=== PATIENT | male | born 1990 | race Caucasian/White ===

== ENCOUNTER 2016-07-31 16:56 | Emergency (ER) | payer MEDICAID, OTHER ==
[2016-07-31] MEDS ORDERED: LIDOCAINE HCL/EPINEPHRINE 30 ML VIAL IJ ONE (17:49)
--- OUTSIDE RECORDS SUMMARY | 2016-07-31 17:50 | XMS REPORT | Continuity of Care Document ---
:1990 Author Organization [facility] ([facility]) Address [address] [place] [address] Phone [phone] Care Team Providers Name Role Phone Raphael VickersBrenda Primary Care Provider [phone] Source Comments This disclosure is being made pursuant to the Care Everywhere program, applicable federal and state laws, and may not contain all informaitonavailable regarding this patient.[facility] ([facility]) Active Allergies and Adverse Reactions No Known Allergies Current Medications Prescription Sig. Disp. Refills Start Date End Date Status docusate 100 mg capsule Take 1 Cap by mouth 30 Cap 0 01/03/2014 Active 2 times daily. Indications: CONSTIPATION sennosides 8.6 mg Take 1-2 Tabs by 30 Tab 0 01/03/2014 Active tablet mouth daily. Indications: CONSTIPATION oxyCODONE-acetaminophen Take 1-2 Tabs by 30 Tab 0 01/03/2014 Active 5-325 mg per tablet mouth every 4 hours as needed. Do Not exceed 4000 mg of acetaminophen per 24 hours. Indications: PAIN ACETAMINOPHEN (TYLENOL Take by mouth as Active PO) needed. cyclobenzaprine 10 mg Take 1 Tab by mouth 40 Tab 0 02/11/2014 Active tablet at bedtime as needed. Indications: MUSCLE SPASM citalopram 10 mg tablet Take 1 Tab by mouth 30 Tab 3 02/11/2014 Active at bedtime. Indications: MAJOR DEPRESSIVE DISORDER ibuprofen PO Take 400 mg by mouth Active 4 times daily as needed. baclofen 10 mg tablet Take 1 Tab by mouth 90 Tab 3 05/25/2014 Active 3 times daily as needed. Indications: MUSCLE SPASTICITY OF SPINAL ORIGIN Active Problems Problem Noted Date Subdural hemorrhage 12/31/2013 Rib fractures 12/31/2013 Overview: B/L 1st ribs, L 9-11 Lumbar transverse process fracture 12/31/2013 Overview: Left L1-L3 Trauma 12/31/2013 Spleen laceration extending into parenchyma 12/31/2013 Overview: Required spenic artery angiogram ABDOMINAL PAIN PERIUMBILICAL 04/10/2005 Immunizations Name Dates Previously Given Next Due Pneumococcal Polysaccharide, PPSV23 (Pneumovax 23) 01/03/2014 Social History Tobacco Use Types Packs/Day Years Used Date Current Every Day Smoker Cigarettes Smokeless Tobacco: Current User Chew Alcohol Use Drinks/Week oz/Week Comments No Last Filed Vital Signs Vital Sign Reading Time Taken Blood Pressure 107/69 05/25/2014 10:50 AM CDT Pulse 82 05/25/2014 10:50 AM CDT Temperature 36.7 C (98.1 F) 05/25/2014 10:50 AM CDT Respiratory Rate 20 02/11/2014 3:59 PM [facility] Height 1.753 m (5' 9.02") 05/25/2014 10:50 AM CDT Weight 53.071 kg (117 lb) 05/25/2014 10:50 AM CDT Body Mass Index 17.27 05/25/2014 10:50 AM CDT Oxygen Saturation 95% 02/11/2014 3:59 PM [facility] Plan of Care Health Maintenance Due Date Last Done Comments Hepatitis B Vaccine (1 of 3 - Primary Series) 1992 HPV Vaccine (1 of 3 - Male 3 Dose Series) 10/07/2003 Tdap Vaccine 10/07/2003 Lipid Disorder Screening 2010 MMR Vaccine 2010 Td Vaccine 2010 Varicella Vaccine (1 of 2 - Adult - No Evidence of 2010 Immunity) Influenza Vaccine: Seasonal (#1) 10/02/2015 Pneumococcal Vaccine Completed 01/03/2014 Results from Last 3 Months Not on file
--- NOTE | 2016-07-31 18:25 | ERNOTE ---
Medical Problem HPI - Narrative Date of Service: 07/31/16 - General Chief Complaint: Laceration Time Seen by Provider: 07/31/16 17:40 Source: patient, RN notes reviewed Exam Limitations: no limitations - Immun/Allergies/Home Medications Immunizations: IMMUNIZATION HX Immunizations Up to Date Yes History of Influenza Vaccine No Hx Pneumococcal Vaccination No Allergies/Adverse Reactions: Allergies No Known Allergies Allergy (Verified 07/31/16 17:05) Home Medications: HOME MEDICATIONS Alprazolam [Alprazolam Xr] 1 mg PO TID 01/22/16 [Last Taken Unknown] - History of Present History Narrative: 25 y/o male brought to the ED by private vehicle from his work for a laceration to his chin. He works at [employer]. He was using a pry bar when it came loose and struck his chin. He denies falling down or losing consciousness. His last tetanus vaccination was in 2012. Date (Duration): 07/31/16 Review of Systems - Review of Systems Constitutional: Absent: weakness, fatigue EYE: Absent: eye pain, vision changes ENT: Absent: nasal drainage, other - dental injury Respiratory: Present: no symptoms reported Cardiology: Present: no symptoms reported Gastrointestinal/Abdominal: Absent: nausea, vomiting Genitourinary: Present: no symptoms reported Musculoskeletal: Absent: muscle pain, neck pain Skin: Absent: lesions, lumps, change in color Neurological: Absent: headache, dizziness/light-headedness, numbness, tingling Endocrine: Present: no symptoms reported Hematologic/Lymphatic: Absent: easy bruising, easy bleeding Psych: Present: no symptoms reported - Patient's Past Medical History Patient History - Medical: Anxiety, Depression, Headache Patient History - Cardiac/Respiratory: No pertinent hx Patient History - Cancer: No Hx of Cancer Patient History - Surgical Procedures: No surgical history Patient History - Other: None - Family History mom Family History - Medical: Anxiety Family History - Cardiac/Respiratory: Hypertension, TIA - Social History Living Situations: other Abuse History: No History of abuse Psych History: Hx of Anxiety, Hx of Depression, Current tx/ever been on anti- depressants or anti-anxiety meds Does anyone smoke in the home?: Yes Smoking Status: Current every day smoker Have you smoked in the past 12 months: Yes Alcohol Use: occasionally Drug Use: none - Immunizations Immunizations Up to Date: Yes Hx Pneumococcal Vaccination: No History of Influenza Vaccine: No Physical Exam - Physical Exam General Appearance: Present: wd/wn, alert, no apparent distress Eye Exam: Normal inspection: bilateral, PERRL: bilateral Ears, Nose, Throat: Present: normal ENT inspection, other - no jaw tenderness, impaired movement or deformity, no loose teeth Neck: Present: normal inspection, nontender, supple, full range of motion Respiratory: Present: no respiratory distress, no accessory muscle use Cardiovascular/Chest: Present: normal peripheral pulses Neurological Exam: Present: alert, oriented, normal mood/affect, no motor/ sensory deficits Skin Exam: Present: normal color, warm/dry, other - laceration to mandible just right of midline ED Progress - Vital Signs Patient's Vital Signs:: I have reviewed the patient's vital signs. Vital Signs: Vital Signs 07/31/16 17:02 Temperature 36.8 C Pulse Rate 88 Respiratory 14 Rate Blood Pressure 127/77 O2 Sat by Pulse 100 Oximetry - Progress/Reassessment Chief Complaint: Laceration Progress:: Improved Procedures Chin Anesthesia: Lidocaine w/ Epi Length of Repair/Wound (cm): 1.5 Wound's Depth/Shape: into subcutaneous, irregular Wound Explored: clean, to base, in bloodless field, no foreign body Wound Intervention: irrigated w/saline, multiple flaps aligned Wound Repaired With: sutures Suture Size/Type: 6-0, nylon Number of Sutures: 5 Layer Closure: Simple Wound Dressing: sterile dressing applied Complications: Pt anderson procedure well Plan - Plan Plan: Patient discharged, to lab for employer required drug testing. Patient concerned because he knows he will be positive for benzodiazepines but is taking alprazolam that is prescribed to him. Departure - Departure Clinical Impression: Chin laceration Qualifiers: Encounter type: initial encounter Qualified Code(s): S01.81XA - Laceration without foreign body of other part of head, initial encounter Disposition: Home Follow Up Needed Condition: Good Instructions: Sutured Wound Care, [id number] Additional Instructions: Keep dressing dry and in place for 24 hours Tomorrow night, remove dressing and wash gently with soap and water Apply antibiotic ointment twice a day, cover with bandaid as needed Have sutures removed in 5 days Referrals: Cherie Olivarez, [facility] [Allied Health] -
[2016-07-31 20:07] VITALS: BP 122/74
== END 2016-07-31 18:27 | disposition home or self-care (01) ==
LOC: ER 16:56
PROC: 0JQ10ZZ Repair Face Subcutaneous Tissue and Fascia, Open Approach (ICD-10-PCS; principal; 2016-07-31)
DX: S01.81XA Laceration without foreign body of other part of head, initial encounter (principal); X78.8XXA Intentional self-harm by other sharp object, initial encounter; Y93.9 Activity, unspecified; Y92.63 Factory as the place of occurrence of the external cause; Y99.0 Civilian activity done for income or pay; F41.8 Other specified anxiety disorders; Z72.0 Tobacco use

== ENCOUNTER 2016-09-18 16:06 | Emergency (ER) | payer OTHER ==
[2016-09-18 16:14] VITALS: BP 119/70
[2016-09-18] MEDS ORDERED: TETRACAINE HCL 150 DROP BTL ONE (16:24)
[2016-09-18] MEDS ORDERED: IBUPROFEN 600 MG TABLET PO ONE (16:49)
[2016-09-18] MEDS ORDERED: GENTAMICIN SULFATE 3.5 APPL TUBE EACHEYE ONE (16:49)
[2016-09-18] MEDS ORDERED: IBUPROFEN 600 MG TABLET ONE (16:51)
[2016-09-18] MEDS ORDERED: GENTAMICIN SULFATE 3.5 APPL TUBE ONE (16:51)
--- NOTE | 2016-09-18 17:03 | ERNOTE ---
ENT [facility] Date of Service: 09/18/16 Presenting Symptoms: eye pain Time Seen by Provider: 09/18/16 16:32 Source: patient, RN notes reviewed Exam Limitations: no limitations - Immun/Allergies/Home Medications Immunizations: IMMUNIZATION HX Immunizations Up to Date Yes History of Influenza Vaccine No Hx Pneumococcal Vaccination No Allergies/Adverse Reactions: Allergies Allergy/AdvReac Type Severity Reaction Status Date / Time No Known Allergies Allergy Verified 09/18/16 16:14 Home Medications: HOME MEDICATIONS NK [No Home Medication] 09/18/16 [Last Taken Unknown] - History of Present Illness Narrative: 25 y/o male ambulatory to the ED for flash yañez from welding arc exposure to both eyes. The patient works at [employer]. 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 He reports that he has had symptoms off and on throughout his employment there. He states that his eye pain and inflammation worsens during the work week, but improves over the weekend while he is off. He does not wear contacts or glasses. He has not been taking anything for his symptoms. ENT Location: Present: eye (R), eye (L) Prearrival Treatment: Present: no prearrival treatment Review of Systems - Review of Systems Constitutional: Absent: recent illness, fever, chills EYE: Present: eye pain, blurred vision, tearing. Absent: double vision ENT: Absent: ear pain, nose congestion, nasal drainage, sore throat Respiratory: Absent: shortness of breath, cough Cardiology: Present: no symptoms reported Gastrointestinal/Abdominal: Absent: nausea, abdominal pain Genitourinary: Present: no symptoms reported Musculoskeletal: Absent: neck pain, joint pain Skin: Absent: rash, lesions Neurological: Absent: headache, dizziness/light-headedness Endocrine: Present: no symptoms reported, unexplained weight loss Psych: Present: no symptoms reported - Patient's Past Medical History Patient History - Medical: No pertinent hx Patient History - Cardiac/Respiratory: Asthma Patient History - Cancer: No Hx of Cancer Patient History - Surgical Procedures: No surgical history Patient History - Other: None - Family History mom Family History - Medical: Anxiety Family History - Cardiac/Respiratory: Hypertension, TIA - Social History Living Situations: spouse Abuse History: No History of abuse Psych History: Hx of Anxiety, Hx of Depression, Current tx/ever been on anti- depressants or anti-anxiety meds Does anyone smoke in the home?: Yes Smoking Status: Current every day smoker Alcohol Use: occasionally Drug Use: none - Immunizations Immunizations Up to Date: Yes Hx Pneumococcal Vaccination: No History of Influenza Vaccine: No Physical Exam - Physical Exam General Appearance: Present: wd/wn, alert, no apparent distress Head Exam: Present: normal inspection, no evidence of injury Eye Exam: PERRL: bilateral, EOMI: bilateral, Photophobia: bilateral, Other: bilateral - bilateral conjunctival injection and tearing present Respiratory: Present: no respiratory distress, no accessory muscle use Neurological Exam: Present: alert, oriented, normal mood/affect, no motor/ sensory deficits Skin Exam: Present: normal color, warm/dry ED Progress - Vital Signs Patient's Vital Signs:: I have reviewed the patient's vital signs. Vital Signs: Vital Signs 09/18/16 16:07 Temperature 37.1 C Pulse Rate 95 Respiratory 16 Rate Blood Pressure 119/70 O2 Sat by Pulse 99 Oximetry - Progress/Reassessment Chief Complaint: Eye Injury/Trauma Progress:: Improved Procedures Eye Location: both eyes Tetracaine Drops Administered: Yes Eye - Cornea: Bilateral: examined w/fluorescein, fluorescein dye uptake, abrasion Antibiotic Ointment/Drps Admin: both eyes Complications: Pt anderson procedure well Departure Clinical Impression: Ultraviolet keratitis of both eyes - Departure Disposition: Home Follow Up Needed Condition: Stable Additional Instructions: Ibuprofen for pain 600 mg (3 tablets) every 6 hours with food Use eye ointment 3 times a day for 5 days Wear sunglasses and avoid light exposure Follow up in occupational health as scheduled by your employer Referrals: Devorah Santos FNP [Allied Health] -
== END 2016-09-18 17:09 | disposition home or self-care (01) ==
LOC: ER 16:06
DX: H16.133 Photokeratitis, bilateral (principal); F17.200 Nicotine dependence, unspecified, uncomplicated; Y93.89 Activity, other specified; Y92.63 Factory as the place of occurrence of the external cause; Y99.0 Civilian activity done for income or pay

== ENCOUNTER 2016-12-09 13:24 | Emergency (ER) | payer MEDICAID ==
--- NOTE | 2016-12-09 14:36 | ERNOTE ---
Upper Extremity HPI - General Extremities Pain Location: 5th finger: right Time Seen by Provider: 12/09/16 13:35 Source: patient - Immun/Allergies/Home Medications Immunizations: IMMUNIZATION HX Immunizations Up to Date Yes History of Influenza Vaccine No Hx Pneumococcal Vaccination No Allergies/Adverse Reactions: Allergies Allergy/AdvReac Type Severity Reaction Status Date / Time No Known Allergies Allergy Verified 12/09/16 13:34 Home Medications: HOME MEDICATIONS ALPRAZolam [Xanax] 2 mg PO DAILY 12/09/16 [Last Taken Unknown] Naproxen [Naprosyn] 500 mg PO BID #60 tablet 12/09/16 [Last Taken Unknown] - History of Present Illness Narrative: Patient was wrestling with his cousin and injured his right little finger. The pain is always moderate in intensity and states he got it caught in his cousins T-shirt and twisted awkwardly. Occurred: yesterday Location of Incident: home Severity: moderate Method of Injury: Reports: twisted Loss of Consciousness: Reports: no loss of consciousness Other Injuries: Reports: none Review of Systems - Review of Systems Constitutional: Present: See HPI EYE: Present: no symptoms reported ENT: Present: no symptoms reported Respiratory: Present: no symptoms reported Cardiology: Present: no symptoms reported Gastrointestinal/Abdominal: Present: no symptoms reported Genitourinary: Present: no symptoms reported Musculoskeletal: Present: See HPI Skin: Present: no symptoms reported Neurological: Present: no symptoms reported Endocrine: Present: no symptoms reported Hematologic/Lymphatic: Present: no symptoms reported Psych: Present: no symptoms reported - Patient's Past Medical History Patient History - Medical: No pertinent hx Patient History - Cardiac/Respiratory: No pertinent hx Patient History - Cancer: No Hx of Cancer Patient History - Surgical Procedures: No surgical history Patient History - Other: None - Family History mom Family History - Medical: Anxiety Family History - Cardiac/Respiratory: Hypertension, TIA - Social History Abuse History: No History of abuse Psych History: Hx of Anxiety, Hx of Depression, Current tx/ever been on anti- depressants or anti-anxiety meds Smoking Status: Current every day smoker Have you smoked in the past 12 months: Yes - Immunizations Immunizations Up to Date: Yes Hx Pneumococcal Vaccination: No History of Influenza Vaccine: No Physical Exam - Physical Exam General Appearance: Present: wd/wn, alert, moderate distress Eye Exam: Normal inspection: bilateral, PERRL: bilateral Ears, Nose, Throat: Present: normal ENT inspection, H, normal pharynx Neck: Present: normal inspection, nontender Respiratory: Present: no respiratory distress, normal breath sounds, no accessory muscle use, chest nontender, lungs clear Cardiovascular/Chest: Present: regular rate, rhythm, no murmur, normal peripheral pulses Gastrointestinal/Abdominal: Present: normal bowel sounds, nontender, nondistended, soft, no organomegaly Rectal Exam: Present: deferred Back Exam: Present: normal inspection, normal range of motion Extremity Exam: Present: decreased range of motion, bony tenderness - all of the level of the DIP joint of the fifth digit on the right hand, joint swelling Neurological Exam: Present: alert, oriented, normal mood/affect Skin Exam: Present: normal color, warm/dry Lymphatic Exam: Present: no adenopathy ED Progress - Vital Signs Patient's Vital Signs:: I have reviewed the patient's vital signs. Vital Signs: Vital Signs 12/09/16 13:30 Temperature 37.3 C Pulse Rate 86 Respiratory 18 Rate Blood Pressure 123/80 O2 Sat by Pulse 99 Oximetry - X-Ray X-Ray #1 X-Ray: finger Interpretation: Reviewed by me - Progress/Reassessment Chief Complaint: Hand Injury/Pain Plan - Plan Plan: Finger splint was applied, prescription for Naprosyn was given and patient will be given the day off HIS family physician as needed Departure Clinical Impression: Closed fracture of finger, phalanx, distal Qualifiers: Encounter type: initial encounter Finger: little finger Fracture alignment: nondisplaced Laterality: right Qualified Code(s): S62.666A - Nondisplaced fracture of distal phalanx of right little finger, initial encounter for closed fracture - Departure Disposition: Home self-care Condition: Good Instructions: Finger Fracture, [id number] Referrals: Salvador Acharya MD [Primary Care Provider] - Prescriptions: Naproxen [Naprosyn] 500 mg PO BID #60 tablet
[2016-12-09 14:44] VITALS: BP 120/72
== END 2016-12-09 14:43 | disposition home or self-care (01) ==
LOC: ER 13:24
PROC: 2W3JX1Z Immobilization of Right Finger using Splint (ICD-10-PCS; principal; 2016-12-09)
DX: S62.666A Nondisplaced fracture of distal phalanx of right little finger, initial encounter for closed fracture (principal); X58.XXXA Exposure to other specified factors, initial encounter; Y92.009 Unspecified place in unspecified non-institutional (private) residence as the place of occurrence of the external cause; F17.200 Nicotine dependence, unspecified, uncomplicated

== ENCOUNTER 2017-01-12 14:44 | Emergency (ER) | payer MEDICAID ==
[2017-01-12 15:05] VITALS: BP 109/65
--- NOTE | 2017-01-12 15:10 | ERNOTE ---
ENT HPI Presenting Symptoms: other Time Seen by Provider: 01/12/17 15:07 Source: patient - sore throat and low-grade cough Exam Limitations: no limitations - Immun/Allergies/Home Medications Immunizations: IMMUNIZATION HX Immunizations Up to Date Yes History of Influenza Vaccine No Hx Pneumococcal Vaccination No Allergies/Adverse Reactions: Allergies Allergy/AdvReac Type Severity Reaction Status Date / Time No Known Allergies Allergy Verified 12/09/16 13:34 Home Medications: HOME MEDICATIONS ALPRAZolam [Xanax] 2 mg PO DAILY 12/09/16 [Last Taken Unknown] Naproxen [Naprosyn] 500 mg PO BID #60 tablet 12/09/16 [Last Taken Unknown] Amox Tr/Potassium Clavulanate [Augmentin 875-125 Tablet] 875 mg PO Q12H #20 tab 01/12/17 [Last Taken Unknown] - History of Present Illness Narrative: Patient's fianc and both of his children have had strep throat he's been exposed and now complains of a sore throat himself with a low-grade cough. Severity: Present: moderate ENT Location: Present: throat Prearrival Treatment: Present: no prearrival treatment Modifying Factors - Improves: Reports: nothing Modifying Factors - Worsens: Reports: nothing Associated Symptoms - ENT: Reports: cough Review of Systems - Review of Systems Constitutional: Present: See HPI EYE: Present: no symptoms reported ENT: Present: sore throat Respiratory: Present: cough Cardiology: Present: no symptoms reported Gastrointestinal/Abdominal: Present: no symptoms reported Genitourinary: Present: no symptoms reported Musculoskeletal: Present: no symptoms reported Skin: Present: no symptoms reported Neurological: Present: no symptoms reported Endocrine: Present: no symptoms reported Hematologic/Lymphatic: Present: no symptoms reported Psych: Present: no symptoms reported - Patient's Past Medical History Patient History - Medical: No pertinent hx Patient History - Cardiac/Respiratory: No pertinent hx Patient History - Cancer: No Hx of Cancer Patient History - Surgical Procedures: No surgical history Patient History - Other: None - Family History mom Family History - Medical: Anxiety Family History - Cardiac/Respiratory: Hypertension, TIA - Social History Living Situations: significant other Abuse History: No History of abuse Psych History: Hx of Anxiety, Hx of Depression, Current tx/ever been on anti- depressants or anti-anxiety meds Smoking Status: Current every day smoker Have you smoked in the past 12 months: Yes Do you dip or chew tobacco: No Alcohol Use: occasionally Drug Use: none - Immunizations Immunizations Up to Date: Yes Hx Pneumococcal Vaccination: No History of Influenza Vaccine: No Physical Exam - Physical Exam General Appearance: Present: wd/wn, alert, mild distress Head Exam: Present: normal inspection Eye Exam: Normal inspection: bilateral, PERRL: bilateral Ears, Nose, Throat: Present: normal ENT inspection, pharyngeal erythema Neck: Present: normal inspection, nontender Respiratory: Present: no respiratory distress, normal breath sounds, no accessory muscle use, chest nontender, lungs clear Cardiovascular/Chest: Present: regular rate, rhythm, no murmur, normal peripheral pulses Gastrointestinal/Abdominal: Present: normal bowel sounds, nontender, nondistended, soft, no organomegaly Rectal Exam: Present: deferred Back Exam: Present: normal inspection, normal range of motion Extremity Exam: Present: normal inspection, non-tender, no edema, normal range of motion Neurological Exam: Present: alert, oriented, normal mood/affect Skin Exam: Present: normal color, warm/dry Lymphatic Exam: Present: no adenopathy ED Progress - Vital Signs Patient's Vital Signs:: I have reviewed the patient's vital signs. Vital Signs: Vital Signs 01/12/17 14:59 Temperature 38.1 C H Pulse Rate 102 H Respiratory 14 Rate Blood Pressure 109/65 O2 Sat by Pulse 97 Oximetry - Progress/Reassessment Chief Complaint: Sore Throat Plan - Plan Plan: Patient was started on Augmentin and he will follow up with his family physician as needed Departure Clinical Impression: Pharyngitis Qualifiers: Pharyngitis/tonsillitis etiology: other specified organisms Qualified Code(s): J02.8 - Acute pharyngitis due to other specified organisms - Departure Disposition: Home self-care Condition: Good Instructions: Sore Throat, Strep Throat, [id number] Referrals: Salvador Acharya MD [Primary Care Provider] - Prescriptions: Amox Tr/Potassium Clavulanate [Augmentin 875-125 Tablet] 875 mg PO Q12H #20 tab
== END 2017-01-12 15:10 | disposition home or self-care (01) ==
LOC: ER 14:44
DX: J02.8 Acute pharyngitis due to other specified organisms (principal); F17.200 Nicotine dependence, unspecified, uncomplicated

== ENCOUNTER 2017-01-14 09:11 | Emergency (ER) | payer MEDICAID ==
[2017-01-14 09:23] VITALS: BP 123/90
--- NOTE | 2017-01-14 09:55 | ERNOTE ---
ENT HPI Presenting Symptoms: other - patient has a continuing sore throat Time Seen by Provider: 01/14/17 09:46 Source: patient Exam Limitations: no limitations - Immun/Allergies/Home Medications Immunizations: IMMUNIZATION HX Immunizations Up to Date Yes History of Influenza Vaccine No Hx Pneumococcal Vaccination No Allergies/Adverse Reactions: Allergies Allergy/AdvReac Type Severity Reaction Status Date / Time No Known Allergies Allergy Verified 01/14/17 09:23 Home Medications: HOME MEDICATIONS ALPRAZolam [Xanax] 2 mg PO DAILY 12/09/16 [Last Taken Unknown] Naproxen [Naprosyn] 500 mg PO BID #60 tablet 12/09/16 [Last Taken Unknown] Amox Tr/Potassium Clavulanate [Augmentin 875-125 Tablet] 875 mg PO Q12H #20 tab 01/12/17 [Last Taken Unknown] predniSONE [Deltasone] 20 mg PO BID #6 tablet 01/14/17 [Last Taken Unknown] - History of Present Illness Narrative: Patient states that the Augmentin that he got yesterday has not kicked in yet he still doesn't feel that. Severity: Present: moderate ENT Location: Present: throat Prearrival Treatment: Present: prescription meds Associated Symptoms - ENT: Reports: denies symptoms Prior Treament: Reports: recently seen, treated by physician, currently on antibiotics Review of Systems - Review of Systems Constitutional: Present: See HPI EYE: Present: no symptoms reported ENT: Present: sore throat Respiratory: Present: no symptoms reported Cardiology: Present: no symptoms reported Gastrointestinal/Abdominal: Present: no symptoms reported Genitourinary: Present: no symptoms reported Musculoskeletal: Present: no symptoms reported Skin: Present: no symptoms reported Neurological: Present: no symptoms reported Endocrine: Present: no symptoms reported Hematologic/Lymphatic: Present: no symptoms reported Psych: Present: no symptoms reported - Patient's Past Medical History Patient History - Medical: No pertinent hx, Other - current sore throat Patient History - Cardiac/Respiratory: No pertinent hx Patient History - Cancer: No Hx of Cancer Patient History - Surgical Procedures: No surgical history Patient History - Other: None - Family History mom Family History - Medical: Anxiety Family History - Cardiac/Respiratory: Hypertension, TIA - Social History Abuse History: No History of abuse Psych History: Hx of Anxiety, Hx of Depression, Current tx/ever been on anti- depressants or anti-anxiety meds Smoking Status: Current every day smoker Have you smoked in the past 12 months: Yes - Immunizations Immunizations Up to Date: Yes Hx Pneumococcal Vaccination: No History of Influenza Vaccine: No Physical Exam - Physical Exam General Appearance: Present: wd/wn, alert, mild distress Head Exam: Present: normal inspection Eye Exam: Normal inspection: bilateral, PERRL: bilateral Ears, Nose, Throat: Present: pharyngeal erythema, other - coated tongue Neck: Present: normal inspection, nontender Respiratory: Present: no respiratory distress, normal breath sounds, no accessory muscle use, chest nontender, lungs clear Cardiovascular/Chest: Present: regular rate, rhythm, no murmur, normal peripheral pulses Gastrointestinal/Abdominal: Present: normal bowel sounds, nontender, nondistended, soft, no organomegaly Rectal Exam: Present: deferred Back Exam: Present: normal inspection, normal range of motion Extremity Exam: Present: normal inspection, non-tender, no edema, normal range of motion Neurological Exam: Present: alert, oriented, normal mood/affect Skin Exam: Present: normal color, warm/dry Lymphatic Exam: Present: no adenopathy ED Progress - Vital Signs Patient's Vital Signs:: I have reviewed the patient's vital signs. Vital Signs: Vital Signs 01/14/17 09:20 Temperature 37.8 C H Pulse Rate 74 Respiratory 14 Rate Blood Pressure 123/90 O2 Sat by Pulse 99 Oximetry - Progress/Reassessment Chief Complaint: Sore Throat Plan - Plan Plan: Patient was instructed to stay on his Augmentin and he will be given 3 days prednisone and follow-up with his family physician as needed. Departure Clinical Impression: Pharyngitis Qualifiers: Pharyngitis/tonsillitis etiology: other specified organisms Qualified Code(s): J02.8 - Acute pharyngitis due to other specified organisms - Departure Disposition: Home self-care Condition: Good Instructions: Pharyngitis, [id number] Referrals: Salvador Acharya MD [Primary Care Provider] - Prescriptions: predniSONE [Deltasone] 20 mg PO BID #6 tablet
== END 2017-01-14 09:57 | disposition home or self-care (01) ==
LOC: ER 09:11
DX: J02.8 Acute pharyngitis due to other specified organisms (principal); F17.200 Nicotine dependence, unspecified, uncomplicated; F41.9 Anxiety disorder, unspecified